=== PATIENT | male | born 1985 | race Caucasian/White ===

== ENCOUNTER 2023-07-11 05:04 | Inpatient (IN) | payer MEDICAID ==
[~2023-07-11] VITALS: Ht 182.9 cm; Wt 83.5 kg
[~2023-07-11 05:04] MED LIST: CLIN-214 PO; HYDR-4383 PO; NAPR-1154 PO; RIVA10TA PO; WARF2TAB PO; WARF5TAB2 PO
[2023-07-11] MEDS ORDERED: ketorolac trometh. 30mg/ml inj. IV STA (06:36)
[2023-07-11] MEDS ORDERED: HYDROcodone/acetaminophen 10/325mg tab PO ONE (06:40)
[2023-07-11] MEDS ORDERED: acetaminophen 325mg tablet PO ONE (06:40)
[2023-07-11] MEDS ORDERED: iohexol 350MG/ML 100ml bottle IV ONE (08:58)
[2023-07-11 09:45] LABS: BASOPHILS % (AUTO) 0.3 % (0-1); EOSINOPHILS # (AUTO) 0.2 X10'3 (0-0.9); EOSINOPHILS % (AUTO) 3.1 % (0-6); HEMATOCRIT 39.1 % (42.0-52.0); HEMOGLOBIN 13.6 g/dl (14.0-17.9); LYMPHOCYTES # (AUTO) 1.1 X10'3 (1.1-4.8); LYMPHOCYTES % (AUTO) 16.9 % (21-51); MEAN CORPUSCULAR HGB CONC 34.8 g/dL (33.0-36.5); MEAN CORPUSCULAR VOLUME 95.1 FL (78-98); MEAN PLATELET VOLUME 7.7 FL (7.4-10.4); MONOCYTES # (AUTO) 0.7 X10'3 (0-0.9); MONOCYTES % (AUTO) 10.3 % (2-12); NEUTROPHILS # (AUTO) 4.5 X10'3 (1.8-7.7); NEUTROPHILS % (AUTO) 69.4 % (42-75); PLATELET COUNT 151 X10'3 (140-440); RED BLOOD COUNT 4.11 X10'6 (4.70-6.10); RED CELL DISTRIBUTION WIDTH 15.3 % (11.5-14.5); WHITE BLOOD COUNT 6.5 X10'3 (4.5-11.0)
[2023-07-11 10:01] LABS: ALBUMIN 3.1 G/DL (3.4-5.0); ANION GAP 5 (8-16); BLOOD UREA NITROGEN 8 MG/DL (7-18); BUN/CREATININE RATIO 9.8 (10.0-20.0); CALCIUM 8.7 MG/DL (8.5-10.1); CHLORIDE 102 MMOL/L (99-107); CREATININE 0.82 MG/DL (0.60-1.10); GLUCOSE 111 MG/DL (70-104); POTASSIUM 4.3 MMOL/L (3.5-5.1); SODIUM 135 MMOL/L (135-145); eCRCL 134 ML/MIN; eGFR > 90 ML/MIN
[2023-07-11] MEDS ORDERED: magnesium 2GM in 50ml NS 50 ML IV PRN (12:30)
[2023-07-11] MEDS ORDERED: mag hydrox/Alum hydrox/simeth 30ml oral suspension PO PRN (12:30)
[2023-07-11] MEDS ORDERED: magnesium 4gm in 100ml NS 100 ML IV PRN (12:30)
[2023-07-11] MEDS ORDERED: HYDROcodone/acetaminophen 5mg/325mg tablet PO PRN (12:30)
[2023-07-11] MEDS ORDERED: acetaminophen 325mg tablet PO PRN ×2 (12:30)
[2023-07-11] MEDS ORDERED: morphine 2 MG/ML inj. syringe IV PRN (12:30)
[2023-07-11] MEDS ORDERED: potassium Cl 20 mEq SR tablet PO PRN ×2 (12:30)
[2023-07-11] MEDS ORDERED: potassium Cl 40MEQ/1/2NS 520ml 520 ML IV PRN (12:30)
[2023-07-11] MEDS ORDERED: ondansetron/PF 4mg/2ml inj IV PRN (12:30)
[2023-07-11] MEDS ORDERED: magnesium Cl slow-release 64mg tablet PO PRN (12:30)
[2023-07-11] MEDS ORDERED: magnesium hydroxide 30ml (MOM) UD suspension PO PRN (12:30)
[2023-07-11] MEDS ORDERED: heparin 10,000 units/1 ML INJ IV ONE (12:35)
[2023-07-11 13:33] LABS: HEMOGLOBIN A1C 5.3 % (4.5-6.2)
[2023-07-11] MEDS: heparin 25,000 UNIT/250ml bag 250 ML IV PRN (14:30)
[2023-07-11] MEDS ORDERED: NO HOME MEDS (16:21)
[2023-07-11 17:47] LABS: BILIRUBIN,URINE NEGATIVE (Neg); CLARITY,URINE CLEAR (Clear); COLOR,URINE YELLOW (Yellow); GLUCOSE, URINE NEGATIVE (Neg); KETONES,URINE NEGATIVE (Neg); LEUKOCYTE ESTERASE ,URINE NEGATIVE (Neg); NITRITES, URINE NEGATIVE (Neg); OCCULT BLOOD,URINE NEGATIVE (Neg); PROTEIN,URINE NEGATIVE (Neg); UROBILINOGEN,URINE 0.2 E.U/dL (0.2-1.0)
[2023-07-11 17:48] LABS: UA COLLECTION TYPE URINAL
[2023-07-11] MEDS ORDERED: haloperidol 5mg tablet PO PRN (19:00)
[2023-07-11] MEDS ORDERED: LORazepam 2 mg/ml vial IV PRN (19:00)
[2023-07-11] MEDS ORDERED: haloperidol lactate 5mg/ml inj IM PRN (19:00)
[2023-07-11] MEDS ORDERED: LORazepam 1 MG tablet PO PRN (19:00)
[2023-07-11] MEDS: K and/or MAG REPLACEMENT MC SCH (20:00)
[2023-07-11] MEDS: docusate sod 100mg capsule PO SCH (21:13)
[2023-07-11] MEDS: thiamine 100mg/ml 2ml inj. IV SCH (21:13)
[2023-07-11] MEDS: nicotine 14mg patch - 24hr TD SCH (21:13)
[2023-07-11] MEDS ORDERED: diazepam inj 5 MG/ML inj. IV PRN (21:55)
--- NOTE | 2023-07-11 23:50 | NUR ---
PATIENT PLACED ON A HOSPITAL BED
[2023-07-12 06:56] LABS: BASOPHILS % (AUTO) 0.2 % (0-1); EOSINOPHILS # (AUTO) 0.2 X10'3 (0-0.9); EOSINOPHILS % (AUTO) 3.8 % (0-6); HEMATOCRIT 39.7 % (42.0-52.0); HEMOGLOBIN 13.4 g/dl (14.0-17.9); LYMPHOCYTES # (AUTO) 1.7 X10'3 (1.1-4.8); LYMPHOCYTES % (AUTO) 28.4 % (21-51); MEAN CORPUSCULAR HEMOGLOBIN 32.3 PG (27.0-31.0); MEAN CORPUSCULAR HGB CONC 33.7 g/dL (33.0-36.5); MEAN CORPUSCULAR VOLUME 95.9 FL (78-98); MEAN PLATELET VOLUME 7.9 FL (7.4-10.4); MONOCYTES # (AUTO) 0.5 X10'3 (0-0.9); MONOCYTES % (AUTO) 9.2 % (2-12); NEUTROPHILS # (AUTO) 3.4 X10'3 (1.8-7.7); NEUTROPHILS % (AUTO) 58.4 % (42-75); PLATELET COUNT 161 X10'3 (140-440); RED BLOOD COUNT 4.14 X10'6 (4.70-6.10); RED CELL DISTRIBUTION WIDTH 15.7 % (11.5-14.5); WHITE BLOOD COUNT 5.8 X10'3 (4.5-11.0)
[2023-07-12 07:22] LABS: ALBUMIN 2.7 G/DL (3.4-5.0); AMYLASE 27 U/L (25-115); ANION GAP 5 (8-16); BLOOD UREA NITROGEN 10 MG/DL (7-18); CALCIUM 8.7 MG/DL (8.5-10.1); CHLORIDE 102 MMOL/L (99-107); CHOL/HDL RATIO 2.9 (0.00-4.99); CHOLESTEROL 150 MG/DL (0-200); CREATININE 0.77 MG/DL (0.60-1.10); GLUCOSE 99 MG/DL (70-104); HDL CHOLESTEROL 52 MG/DL (35-60); LDL CHOLESTEROL 80 MG/DL (50-100); MAGNESIUM 1.9 MG/DL (1.5-2.4); PHOSPHORUS 3.5 MG/DL (2.3-4.5); POTASSIUM 3.8 MMOL/L (3.5-5.1); SODIUM 137 MMOL/L (135-145); TOTAL CARBON DIOXIDE 29.8 MMOL/L (24-32); TRIGLYCERIDES 84 MG/DL (20-135); eCRCL 143 ML/MIN; eGFR > 90 ML/MIN
[2023-07-12 07:23] LABS: LIPASE 12 U/L (16-77)
--- NOTE | 2023-07-12 07:39 | NUR ---
Patient in room ED 16. I have received report from Emely and had the opportunity to ask questions and assume patient care.
--- NOTE | 2023-07-12 07:45 | NUR ---
CALLED REPORT TO PRINCESS JACKSON ON ORTHO. TRANSFERRED PATIENT UPSTAIRSIN HOSPITAL BED AND HAD ALL BELONGINGS WITH.
[2023-07-12 08:00] VITALS: BP 114/71; PULSE 82; RESP 15; TEMP 98.3; O2SAT 96
[2023-07-12] MEDS: K and/or MAG REPLACEMENT MC SCH ×2 (08:00→20:00)
[2023-07-12] MEDS: docusate sod 100mg capsule PO SCH ×2 (08:39→20:53)
[2023-07-12] MEDS: nicotine 14mg patch - 24hr TD SCH (08:40)
[2023-07-12] MEDS: thiamine 100mg/ml 2ml inj. IV SCH ×3 (08:40→20:53)
[2023-07-12] MEDS: multivitamins, therapeutics tablet PO SCH (08:40)
[2023-07-12 10:23] LABS: PROTHROMBIN TIME 11.1 SECONDS (9.0-12.0)
[2023-07-12 11:40] VITALS: BP 110/74; PULSE 86; RESP 16; TEMP 97.9; O2SAT 97
[2023-07-12] MEDS: heparin 25,000 UNIT/250ml bag 250 ML IV PRN (12:20)
[2023-07-12] MEDS: folic acid 1mg/0.2ml inj IV SCH (13:32)
[2023-07-12 17:43] LABS: APTT 28 SECONDS (22-32)
[2023-07-12] MEDS: heparin 10,000 units/1 ML INJ IV PRN (17:50)
[2023-07-12 18:00] VITALS: BP 111/70; PULSE 96; RESP 16; TEMP 97.8; O2SAT 96
--- NOTE | 2023-07-12 18:30 | NUR ---
Patient in room ORTHO 4010. I have received report from PRINCESS Wright and had the opportunity to ask questions and assume patient care.
[2023-07-12 20:30] VITALS: RESP 16; O2SAT 96
[2023-07-12 22:00] VITALS: BP 120/77; PULSE 87; RESP 16; TEMP 98.1; O2SAT 96
[2023-07-13 01:11] LABS: BASOPHILS % (AUTO) 0.3 % (0-1); EOSINOPHILS # (AUTO) 0.2 X10'3 (0-0.9); EOSINOPHILS % (AUTO) 3.6 % (0-6); HEMATOCRIT 42.8 % (42.0-52.0); HEMOGLOBIN 14.7 g/dl (14.0-17.9); LYMPHOCYTES # (AUTO) 1.5 X10'3 (1.1-4.8); MEAN CORPUSCULAR HEMOGLOBIN 32.9 PG (27.0-31.0); MEAN CORPUSCULAR HGB CONC 34.3 g/dL (33.0-36.5); MEAN PLATELET VOLUME 7.8 FL (7.4-10.4); MONOCYTES # (AUTO) 0.6 X10'3 (0-0.9); MONOCYTES % (AUTO) 7.9 % (2-12); NEUTROPHILS # (AUTO) 4.7 X10'3 (1.8-7.7); NEUTROPHILS % (AUTO) 67.2 % (42-75); PLATELET COUNT 156 X10'3 (140-440); RED BLOOD COUNT 4.46 X10'6 (4.70-6.10); RED CELL DISTRIBUTION WIDTH 15.1 % (11.5-14.5)
[2023-07-13 01:19] LABS: ALBUMIN 2.9 G/DL (3.4-5.0); AMYLASE 36 U/L (25-115); ANION GAP 5 (8-16); BLOOD UREA NITROGEN 11 MG/DL (7-18); BUN/CREATININE RATIO 14.7 (10.0-20.0); CHLORIDE 102 MMOL/L (99-107); CHOL/HDL RATIO 2.7 (0.00-4.99); CHOLESTEROL 158 MG/DL (0-200); CREATININE 0.75 MG/DL (0.60-1.10); GLUCOSE 107 MG/DL (70-104); HDL CHOLESTEROL 59 MG/DL (35-60); LDL CHOLESTEROL 86 MG/DL (50-100); MAGNESIUM 2.1 MG/DL (1.5-2.4); PHOSPHORUS 3.7 MG/DL (2.3-4.5); SODIUM 136 MMOL/L (135-145); TOTAL CARBON DIOXIDE 28.6 MMOL/L (24-32); TRIGLYCERIDES 68 MG/DL (20-135); eCRCL 147 ML/MIN; eGFR > 90 ML/MIN
[2023-07-13 01:21] LABS: LIPASE 16 U/L (16-77); POTASSIUM 4.2 MMOL/L (3.5-5.1)
[2023-07-13 01:24] LABS: PROTHROMBIN TIME 10.9 SECONDS (9.0-12.0)
[2023-07-13 06:30] VITALS: BP 130/68; PULSE 68; RESP 16; TEMP 98.7; O2SAT 97
--- NOTE | 2023-07-13 06:30 | NUR ---
Patient in room ORTHO 4010. I have received report from [] and had the opportunity to ask questions and assume patient care.
--- NOTE | 2023-07-13 06:48 | NUR ---
Problems reprioritized. Patient report given, questions answered & plan of care reviewed with PRINCESS Pereira.
[2023-07-13 08:00] VITALS: RESP 16; O2SAT 97
[2023-07-13] MEDS: K and/or MAG REPLACEMENT MC SCH (08:00)
[2023-07-13] MEDS: folic acid 1mg/0.2ml inj IV SCH (08:00)
[2023-07-13] MEDS: multivitamins, therapeutics tablet PO SCH (08:34)
[2023-07-13] MEDS: nicotine 14mg patch - 24hr TD SCH (08:34)
[2023-07-13] MEDS: thiamine 100mg/ml 2ml inj. IV SCH ×2 (08:34→13:56)
[2023-07-13] MEDS: docusate sod 100mg capsule PO SCH (08:34)
--- NOTE | 2023-07-13 09:47 | NUR ---
Received order for consult. Met with patient in regards to alcohol/substance use and to see if patient was interested in resources for treatment options. Patient declined resources and said he is fine right now.
[2023-07-13 10:00] VITALS: BP 125/83; PULSE 98; RESP 16; TEMP 98.7; O2SAT 99
[2023-07-13] MEDS: heparin 10,000 units/1 ML INJ IV PRN (10:33)
[2023-07-13] MEDS: heparin 25,000 UNIT/250ml bag 250 ML IV PRN (10:34)
[2023-07-13] MEDS ORDERED: APIX5TAB3 PO ×4 (15:04→15:21)
[2023-07-13] MEDS ORDERED: apixaban 5mg tablet PO ONE (15:05)
--- NOTE | 2023-07-13 15:54 | NUR ---
Pt discharged home with all belongings and in stable condition.
[2023-07-16] MEDS ORDERED: thiamine 100mg tablet PO SCH (08:00)
[2023-07-16] MEDS ORDERED: folic acid 1mg tablet PO SCH (08:00)
== END 2023-07-13 17:32 | disposition home or self-care (01) | DRG 134 ==
LOC: ER 05:05 → ED HOLD 12:32 → ORTHO 4S 07-12 08:00
PROVIDERS: ADMIT Family Medicine; ATTEND Family Medicine
PROC: B32T1ZZ Computerized Tomography (CT Scan) of Left Pulmonary Artery using Low Osmolar Contrast (ICD-10-PCS; principal; 2023-07-11)
PROC: B3201ZZ Computerized Tomography (CT Scan) of Thoracic Aorta using Low Osmolar Contrast (ICD-10-PCS; 2023-07-11)
PROC: B32S1ZZ Computerized Tomography (CT Scan) of Right Pulmonary Artery using Low Osmolar Contrast (ICD-10-PCS; 2023-07-11)
DX: I26.99 Other pulmonary embolism without acute cor pulmonale (principal); I82.90 Acute embolism and thrombosis of unspecified vein; F10.10 Alcohol abuse, uncomplicated; Z87.891 Personal history of nicotine dependence; F41.9 Anxiety disorder, unspecified
CPT/HCPCS: 36415; 71275; 80048; 80061; 81003; 82150; 83036; 83605; 83690; 83735; 84100; 84145; 84484; 85025; 85610; 85730; 87040; 87081; 93306; 93971; 99285; G0378; J1644; J1885; J3411; J3490; J7030; Q9967

== ENCOUNTER 2024-02-23 02:44 | Emergency (ER) | payer MEDICAID ==
[~2024-02-23] VITALS: Ht 180.3 cm; Wt 77.3 kg
[~2024-02-23 02:44] MED LIST changes: +APIX5TAB3 PO; -CLIN-214 PO; -HYDR-4383 PO; -NAPR-1154 PO; +NO HOME MEDS; -RIVA10TA PO; -WARF2TAB PO; -WARF5TAB2 PO
[2024-02-23 03:03] VITALS: TEMP 98.7
[2024-02-23 04:38] LABS: BASOPHILS % (AUTO) 0.2 % (0-1); EOSINOPHILS % (AUTO) 0.1 % (0-6); HEMOGLOBIN 16.4 g/dl (14.0-17.9); LYMPHOCYTES % (AUTO) 5.8 % (21-51); MEAN CORPUSCULAR HEMOGLOBIN 31.7 PG (27.0-31.0); MEAN CORPUSCULAR HGB CONC 33.4 g/dL (33.0-36.5); MEAN PLATELET VOLUME 8.5 FL (7.4-10.4); MONOCYTES # (AUTO) 1.7 X10'3 (0-0.9); MONOCYTES % (AUTO) 9.8 % (2-12); NEUTROPHILS # (AUTO) 14.3 X10'3 (1.8-7.7); NEUTROPHILS % (AUTO) 84.1 % (42-75); PLATELET COUNT 207 X10'3 (140-440); RED BLOOD COUNT 5.16 X10'6 (4.70-6.10); RED CELL DISTRIBUTION WIDTH 14.2 % (11.5-14.5)
[2024-02-23] MEDS: olanzapine 10mg tablet PO STA (04:42)
[2024-02-23 05:01] LABS: ALBUMIN 4.4 G/DL (3.4-5.0); ANION GAP 14 (8-16); BLOOD UREA NITROGEN 16 MG/DL (7-18); BUN/CREATININE RATIO 7.4 (10.0-20.0); CHLORIDE 98 MMOL/L (99-107); CREATININE 2.15 MG/DL (0.60-1.10); GLUCOSE 90 MG/DL (70-104); PRO BRAIN NATRIURETIC PEPTIDE 272 PG/ML (0-125); SODIUM 136 MMOL/L (135-145); TOTAL CARBON DIOXIDE 23.6 MMOL/L (24-32); eCRCL 49 ML/MIN; eGFR 34 ML/MIN
[2024-02-23 05:03] LABS: POTASSIUM 4.2 MMOL/L (3.5-5.1)
[2024-02-23 05:06] LABS: URINE AMPHETAMINE SCREEN POSITIVE (Neg); URINE BARBITUATE SCREEN NEGATIVE (Neg); URINE BENZODIAZEPINES SCREEN NEGATIVE (Neg); URINE CANNABINOID SCREEN POSITIVE (Neg); URINE COCAINE SCREEN NEGATIVE (Neg); URINE METHADONE SCREEN NEGATIVE (Neg); URINE PHENCYCLIDINE SCREEN NEGATIVE (Neg)
[2024-02-23] MEDS: normal saline 1000ML IV soln IVB ONE (05:36)
[2024-02-23 09:10] VITALS: BP 129/75; PULSE 98; RESP 14; O2SAT 99
[2024-02-23 10:18] LABS: ALBUMIN 3.8 G/DL (3.4-5.0); ANION GAP 11 (8-16); BLOOD UREA NITROGEN 14 MG/DL (7-18); BUN/CREATININE RATIO 9.1 (10.0-20.0); CALCIUM 8.8 MG/DL (8.5-10.1); CHLORIDE 101 MMOL/L (99-107); CREATININE 1.54 MG/DL (0.60-1.10); GLUCOSE 89 MG/DL (70-104); POTASSIUM 4.3 MMOL/L (3.5-5.1); SODIUM 138 MMOL/L (135-145); TOTAL CARBON DIOXIDE 25.8 MMOL/L (24-32); eCRCL 69 ML/MIN; eGFR 51 ML/MIN
[2024-02-23] MEDS ORDERED: APIX5TAB3 PO (16:00)
== END 2024-02-23 10:16 | disposition home or self-care (01) ==
LOC: ER 02:45
DX: R07.9 Chest pain, unspecified (principal); N17.8 Other acute kidney failure; F19.10 Other psychoactive substance abuse, uncomplicated; Z79.899 Other long term (current) drug therapy; Z86.711 Personal history of pulmonary embolism; Z86.718 Personal history of other venous thrombosis and embolism; Z60.2 Problems related to living alone
CPT/HCPCS: 36415; 71045; 80048; 80305; 83880; 84484; 85025; 93005; 96360; 99285; J7030

== ENCOUNTER 2024-02-23 15:06 | Emergency (ER) | payer MEDICAID ==
[~2024-02-23] VITALS: Ht 180.3 cm; Wt 75.0 kg
[2024-02-23 15:51] LABS: BILIRUBIN,URINE SMALL (Neg); CLARITY,URINE SLIGHTLY CLOUDY (Clear); COLOR,URINE YELLOW (Yellow); GLUCOSE, URINE NEGATIVE (Neg); KETONES,URINE 15 mg/dl (Neg); LEUKOCYTE ESTERASE ,URINE NEGATIVE (Neg); NITRITES, URINE NEGATIVE (Neg); OCCULT BLOOD,URINE NEGATIVE (Neg); PROTEIN,URINE NEGATIVE (Neg); UROBILINOGEN,URINE 0.2 E.U/dL (0.2-1.0)
[2024-02-23 15:53] LABS: UA COLLECTION TYPE NON-SPECIFIED
[2024-02-23 15:55] LABS: BACTERIA,URINE NONE SEEN /HPF (Neg); MUCUS STRANDS FEW /LPF (Neg); RBC,URINE NONE SEEN /HPF (0-2); SQUAMOUS EPITHELIAL CELL,UR FEW /LPF (FEW); TRANSITIONAL EPI CELLS,URINE FEW /HPF
[2024-02-23] MEDS ORDERED: APIX5TAB3 PO (16:00)
[2024-02-23 16:06] LABS: URINE AMPHETAMINE SCREEN POSITIVE (Neg); URINE BARBITUATE SCREEN NEGATIVE (Neg); URINE BENZODIAZEPINES SCREEN NEGATIVE (Neg); URINE CANNABINOID SCREEN NEGATIVE (Neg); URINE COCAINE SCREEN NEGATIVE (Neg); URINE METHADONE SCREEN NEGATIVE (Neg); URINE PHENCYCLIDINE SCREEN NEGATIVE (Neg)
[2024-02-23 16:19] LABS: BASOPHILS # (AUTO) 0.1 X10'3 (0-0.2); BASOPHILS % (AUTO) 0.5 % (0-1); EOSINOPHILS # (AUTO) 0.1 X10'3 (0-0.9); EOSINOPHILS % (AUTO) 0.5 % (0-6); HEMATOCRIT 44.1 % (42.0-52.0); HEMOGLOBIN 15.2 g/dl (14.0-17.9); LYMPHOCYTES # (AUTO) 2.1 X10'3 (1.1-4.8); LYMPHOCYTES % (AUTO) 18.8 % (21-51); MEAN CORPUSCULAR HEMOGLOBIN 32.3 PG (27.0-31.0); MEAN CORPUSCULAR HGB CONC 34.5 g/dL (33.0-36.5); MEAN CORPUSCULAR VOLUME 93.7 FL (78-98); MEAN PLATELET VOLUME 8.2 FL (7.4-10.4); MONOCYTES # (AUTO) 1.2 X10'3 (0-0.9); MONOCYTES % (AUTO) 10.4 % (2-12); NEUTROPHILS % (AUTO) 69.8 % (42-75); PLATELET COUNT 212 X10'3 (140-440); RED BLOOD COUNT 4.71 X10'6 (4.70-6.10); RED CELL DISTRIBUTION WIDTH 14.6 % (11.5-14.5); WHITE BLOOD COUNT 11.4 X10'3 (4.5-11.0)
[2024-02-23 16:21] LABS: ALBUMIN 3.9 G/DL (3.4-5.0); ANION GAP 9 (8-16); BLOOD UREA NITROGEN 19 MG/DL (7-18); BUN/CREATININE RATIO 13.3 (10.0-20.0); CHLORIDE 99 MMOL/L (99-107); CREATININE 1.43 MG/DL (0.60-1.10); GLUCOSE 116 MG/DL (70-104); POTASSIUM 3.4 MMOL/L (3.5-5.1); SODIUM 134 MMOL/L (135-145); TOTAL CARBON DIOXIDE 26.5 MMOL/L (24-32); eCRCL 74 ML/MIN; eGFR 55 ML/MIN
[2024-02-23 16:25] LABS: ETHANOL < 10 MG/DL (<10)
[2024-02-23 16:32] VITALS: BP 128/65; PULSE 78; RESP 14; TEMP 98.2; O2SAT 98
[2024-02-23] MEDS ORDERED: apixaban 5mg tablet PO ONE (20:00)
== END 2024-02-23 16:43 | disposition home or self-care (01) ==
LOC: ER 15:06
DX: F11.20 Opioid dependence, uncomplicated (principal); Z20.822 Contact with and (suspected) exposure to COVID-19; F25.9 Schizoaffective disorder, unspecified; Z86.718 Personal history of other venous thrombosis and embolism; Z72.89 Other problems related to lifestyle; Z79.899 Other long term (current) drug therapy
CPT/HCPCS: 36415; 80048; 80305; 80320; 81001; 85025; 87811; 93005; 99284